=== PATIENT | female | born 1975 | race Caucasian/White ===

== ENCOUNTER 2022-08-16 11:09 | Emergency (ER) | payer OTHER, SELFPAY ==
[2022-08-16 11:14] VITALS: BP 111/75; PULSE 83; RESP 20; TEMP 37; O2SAT 93; BMI 25.8
--- NOTE | 2022-08-16 11:30 | CRLHL7_ITS ---
For Patients: As a result of the Century Cures Act, medical imaging exams and procedure reports are released immediately into your electronic medical record. You may view this report before your referring provider. If you have questions, please contact your health care provider. INDICATION: Abdominal pain. TECHNIQUE: CT abdomen and pelvis acquired with 85 cc Isovue 3 7 IV contrast. COMPARISON: None. FINDINGS: Lower chest: Scattered atelectasis. 4 millimeter right basilar nodule, possibly granuloma. Liver: Tiny hypodensities, too small to characterize.. Normal in size and attenuation. No suspicious masses. Gallbladder and bile ducts: Unremarkable. No stones or inflammation. No biliary dilatation. Pancreas: Unremarkable. No mass or inflammation. Spleen: Unremarkable. Normal in size. No masses. Adrenal glands: Unremarkable. No nodules. Kidneys: Unremarkable. No suspicious masses, stones, or hydronephrosis. GI tract: Wall thickening/hyperemia involving multiple loops of distal small bowel in the pelvis, including the terminal ileum. No bowel obstruction. Fluid within the colon which can be seen in diarrhea. Normal appendix, best seen on sagittal Vasculature: Abdominal aorta is normal in caliber. Mesenteric arteries are patent. Lymph nodes: No lymphadenopathy. Peritoneum/Abdominal Wall: No free intraperitoneal air. Pelvis: Trace free fluid. Bones: Unremarkable for age. IMPRESSION: Wall thickening/hyperemia involving multiple loops of distal small bowel in the pelvis, including the terminal ileum suggestive of enteritis, likely infectious/inflammatory. Inflammatory bowel disease not excluded. No drainable fluid collections. Please note that all CT scans at this facility use dose modulation, iterative reconstruction, and/or weight-based dosing when appropriate to reduce radiation dose to as low as reasonably achievable. Dictated by Brandon Cristobal MD @ 08/16/2022 1:21:55 PM (Electronically Signed)
--- NOTE | 2022-08-16 11:41 | ED.NAVMDI ---
HPI - Nausea/Vomiting/Diarrhea General Chief complaint: Nausea/Vomiting Stated complaint: Dehydration Time Seen by Provider: 08/16/22 11:15 History of Present Illness HPI Narrative: Pt is a 46 year old woman who presents with 12 hours of nausea vomiting and diarrhea. Pt has had no blood in her stool or vomit. No fevers or chills. No recent travel. Family is ill with a milder form of illness. Pt has no headache or neurologica symptoms. No chest pain. Pt states the abd is diffusely tender most likely from the vomiting. No other focal complaints. Pt states that her only significant history is mild asthma which has been stable. Related Data Allergies Allergy/AdvReac Type Severity Reaction Status Date / Time ibuprofen [From Advil] Allergy Verified 08/16/22 11:14 naproxen [From Aleve] Allergy Verified 08/16/22 11:14 Review of Systems Status of ROS: Reports: 10 or more systems reviewed and unremarkable except as noted in History and below [facility] Medical History Asthma Social History Smoking Status: Never smoker Do you use any of these nicotine containing products: None Second hand tobacco smoke exposure: No How often do you have a drink containing alcohol: 2-3 times a week How many standard drinks containing alcohol do you have on a typical day: 1 or 2 How often do you have six or more drinks on one occasion: Never AUDIT-C Alcohol total score: 3 Non-prescribed substance use: denies use service: No Exam Narrative: Exam Narrative: EXAM GENERAL: Patient appears comfortable and well. EYES: No scleral icterus. LYMPH: No supraclavicular or cervical lymphadenopathy. SKIN: Visible skin seen during exam normal or with benign process only. EXT: No dependent lower extremity pedal edema. HEART: Regular rate and rhythm with no murmurs, rubs, or gallops. LUNGS: Clear to auscultation bilaterally with no crackles or wheezes. ABD: Soft, non tender, non distended. PSYCH: Good eye contact, speech is not pressured. Const: Vital Signs, click to edit/add: Vital Signs - 24 hr 08/16/22 11:14 08/16/22 12:15 Temperature 98.6 F Pulse Rate [Pulse Oximeter] 83 72 Respiratory Rate 20 20 Blood Pressure [Ri ght Upper Arm] 111/75 111/54 L Pulse Oximetry 93 99 Oxygen Delivery Me thod Room Air Room Air Course Course Hospital Course: Pt seen and examined. CBC, CMP, Amylase, Lipase, UA, CT abd and pelvis ordered. Pt given 1 liter of normal saline and 4 mg of IV Zofran. Reevaluation(s) Reevaluation #1: Pt feeling better. Time: 13:35 Vital Signs Vital signs: Initial Vital Signs Temperature 98.6 F 08/16/22 11:14 Temperature Source Temporal Artery Scan 08/16/22 11:14 Pulse Rate 83 08/16/22 11:14 Pulse Rhythm 08/16/22 11:14 Respiratory Rate 20 08/16/22 11:14 Blood Pressure 111/75 08/16/22 11:14 Blood Pressure Mean 87 08/16/22 11:14 Blood Pressure Position Supine 08/16/22 11:14 Pulse Oximetry 93 08/16/22 11:14 Oxygen Delivery Method 08/16/22 11:14 Vital Signs Temperature 98.6 F 08/16/22 11:14 Pulse Rate 83 08/16/22 11:14 Respiratory Rate 20 08/16/22 11:14 Blood Pressure 111/75 08/16/22 11:14 Pulse Oximetry 93 08/16/22 11:14 Oxygen Delivery Method 08/16/22 11:14 Temperature 98.6 F 08/16/22 11:14 Pulse Rate 72 08/16/22 12:15 Respiratory Rate 20 08/16/22 12:15 Blood Pressure 111/54 L 08/16/22 12:15 Pulse Oximetry 99 08/16/22 12:15 Oxygen Delivery Method 08/16/22 12:15 MDM - Nausea/Vomiting/Diarrhea MDM Narrative Medical decision making narrative: Pt is a 46 year old woman who comes in with nausea, vomiting and diarrhea. CT shows likely enteritis. Labs are reassuring upon my review. Pt treated with normal saline and Zofran and is feeling better. Will send home with close follow up to advance her diet and activity. Zofran ODT as needed. Differential Diagnosis Differential diagnosis: Likely traveler's diarrhea, food poisoning, gastroenteritis, clostridium difficile infection, drug-induced nausea and vomiting and dehydration Lab Data Labs: Lab Results 08/16/22 08/16/22 Range/Units 11:30 11:30 WBC 5.51 (4.50-11.00) K/uL RBC 4.32 (4.00-5.20) m/uL Hgb 13.9 (12.0-16.0) gm/dL Hct 40.2 (33.0-51.0) % MCV 93 (80-100) fL MCH 32 (26-34) pg MCHC 35 (32-36) gm/dL RDW Coeff of Radha 13.4 (11.5-15.5) % Plt Count 140 (140-440) K/uL Neut % (Auto) 76.6 H (42.0-72.0) % Lymph % (Auto) 13.1 L (20-44) % [place] % (Auto) 7.4 (0.0-11.0) % Eos % (Auto) 2.7 (0.0-7.0) % Baso % (Auto) 0.2 (0.0-3.0) % Neut # (Auto) 4.20 (1.7-7.0) K/uL Lymph # (Auto) 0.70 L (0.90-2.90) K/uL [place] # (Auto) 0.40 (0.00-0.90) K/UL Eos # (Auto) 0.15 (0.00-0.50) K/uL Baso # (Auto) 0.01 (0.00-0.30) K/uL Sodium 136 (135-149) mmol/L Potassium 3.6 (3.6-5.1) mmol/L Chloride 107 (96-114) mmol/L Carbon Dioxide 23 (20-32) mmol/L BUN 18 (5-24) mg/dL Creatinine 0.7 (0.5-1.5) mg/dL Estimated Creat Clear 106.06 Estimated GFR 109 ml/min Glucose 119 H (60-115) mg/dL Calcium 8.3 L (8.4-10.6) mg/dL Total Bilirubin 1.6 H (0.1-1.5) mg/dL AST 32 (12-35) U/L ALT 25 (4-35) U/L Alkaline Phosphatase 55 (40-150) U/L Total Protein 7.3 (6.0-8.3) g/dL Albumin 4.2 (3.3-5.0) g/dL Amylase 57 (18-89) U/L Lipase 40 (23-300) U/L Discharge Plan Discharge Clinical Impression: Gastroenteritis Condition: Stable Instructions: Gastroenteritis (ED) Additional Instructions: Advance diet as tolerated Zofran as directed Follow up with your doctor as needed. Activity Level: No Restrictions Discharge Diet: Regular Stand Alone Forms: [employer] Info Instructions
[2022-08-16] MEDS: 0.9 % SODIUM CHLORIDE 1000 ml 1,000 ML IV ×2 (11:43→13:38)
[2022-08-16] MEDS: ONDANSETRON 2 MG/ML inj 4 MG IVP (11:45)
[2022-08-16 11:47] LABS: Basophils Absolute Auto 0.01 K/uL (0.00-0.30); Basophils Percent Auto 0.2 % (0.0-3.0); Eosinophils Absolute Auto 0.15 K/uL (0.00-0.50); Eosinophils Percent Auto 2.7 % (0.0-7.0); Hematocrit 40.2 % (33.0-51.0); Hemoglobin* 13.9 gm/dL (12.0-16.0); Lymphocytes Percent Auto 13.1 % (20-44); Mean Corpuscular HGB Conc 35 gm/dL (32-36); Mean Corpuscular Hemoglobin 32 pg (26-34); Mean Corpuscular Volume 93 fL (80-100); Monocytes Percent Auto 7.4 % (0.0-11.0); Neutrophils Percent Auto 76.6 % (42.0-72.0); Platelet Count* 140 K/uL (140-440); RDW Coefficient of Variation % 13.4 % (11.5-15.5); Red Blood Count 4.32 m/uL (4.00-5.20); White Blood Count* 5.51 K/uL (4.50-11.00)
[2022-08-16 11:54] LABS: Slide Review Reflex No
[2022-08-16 11:59] LABS: Albumin* 4.2 g/dL (3.3-5.0); Chloride* 107 mmol/L (96-114); Sodium* 136 mmol/L (135-149)
[2022-08-16 12:00] LABS: Potassium* 3.6 mmol/L (3.6-5.1)
[2022-08-16 12:02] LABS: Alkaline Phosphatase* 55 U/L (40-150); Amylase* 57 U/L (18-89); Aspartate Amino Transferase* 32 U/L (12-35); Bilirubin Total* 1.6 mg/dL (0.1-1.5); Blood Urea Nitrogen* 18 mg/dL (5-24); Carbon Dioxide* 23 mmol/L (20-32); Creatinine* 0.7 mg/dL (0.5-1.5); Est. Creatinine Clearance* 106.06; Estimated Glomerular Filt Rate 109 ml/min; Glucose* 119 mg/dL (60-115); Lipase* 40 U/L (23-300); Total Protein* 7.3 g/dL (6.0-8.3)
[2022-08-16 12:03] LABS: Alanine Aminotransferase* 25 U/L (4-35); Calcium* 8.3 mg/dL (8.4-10.6)
[2022-08-16 12:15] VITALS: BP 111/54; PULSE 72; RESP 20; O2SAT 99
[2022-08-16 14:43] VITALS: BP 107/65; PULSE 70; RESP 18; TEMP 36.8; O2SAT 98
== END 2022-08-16 14:50 | disposition home or self-care (01) ==
PROVIDERS: Emergency Provider Internal Medicine; PCP Physician Assistant
DX: K52.9 Noninfective gastroenteritis and colitis, unspecified (principal)
CPT/HCPCS: 36415; 74177; 80053; 81003; 82150; 83690; 85025; 96361; 96374; 99283; 99284; 99285; J2405; J7030; Q9967